=== PATIENT | male | born 1965 | race Caucasian/White ===

== ENCOUNTER 2024-04-12 17:53 | Inpatient (IN) | payer SELFPAY ==
[~2024-04-12] VITALS: Ht 162.6 cm; Wt 71.0 kg
[2024-04-12 17:59] VITALS: O2SAT 99
[2024-04-12] MEDS: SODIUM CHLORIDE 0.9% 1000ML BAG (SEPSIS BOLUS) IV ONE (18:21)
[2024-04-12] MEDS: ACETAMINOPHEN 325MG TABLET PO STA (18:25)
[2024-04-12 18:29] LABS: BASOPHILS % 0.5 % (0.0-2.0); HEMATOCRIT. 39.6 % (42.0-52.0); HEMOGLOBIN. 13.9 g/dL (14.0-18.0); LYMPHOCYTES % 18.8 % (20.0-50.0); MEAN CORPUSCULAR HEMOGLOBIN 30.1 pg (28.0-32.0); MEAN CORPUSCULAR HGB CONC 35.1 g/dL (31.0-37.0); MEAN CORPUSCULAR VOLUME 85.7 fL (80.0-94.0); MEAN PLATELET VOLUME 7.5 fl (7.4-10.4); MONOCYTES % 5.3 % (2.0-8.0); NEUTROPHILS % 75.4 % (40.0-76.0); PLATELET 291 x1000/uL (130-400); RED BLOOD CELL COUNT 4.62 mill/uL (4.7-6.1); RED CELL DISTRIBUTION WIDTH 13.7 % (11.6-14.6); WHITE BLOOD COUNT 10.3 x1000/uL (4.5-11.0)
[2024-04-12 18:31] LABS: CHLORIDE 102 mEq/L (98-107); SODIUM 139 mEq/L (136-145)
[2024-04-12 18:32] LABS: CARBON DIOXIDE 16 mEq/L (21-32)
[2024-04-12 18:33] LABS: CALCIUM 9.6 mg/dL (8.7-10.4)
[2024-04-12 18:37] LABS: CREATININE 0.8 mg/dL (0.6-1.3)
[2024-04-12 18:38] LABS: GLUCOSE 128 mg/dL (70-105); UREA NITROGEN BLOOD 9 mg/dL (9-23)
[2024-04-12] MEDS: ONDANSETRON HCL 4MG/2ML INJ IV ONE (19:09)
[2024-04-12 19:29] LABS: ALANINE AMINOTRANSFERASE 82 IU/L (10-49)
[2024-04-12 19:30] LABS: ALBUMIN 4.5 g/dL (3.2-4.8); ASPARTATE AMINOTRANSFERASE 184 IU/L (<34); BILIRUBIN DIRECT 0.2 mg/dL (<=3.0); BILIRUBIN TOTAL 1.1 mg/dL (0.1-1.0); PROTEIN TOTAL 7.6 g/dL (6.0-8.3)
[2024-04-12 19:31] LABS: TROPONIN I HIGH SENSITIVITY < 4 ng/L (3.0-53)
[2024-04-12 19:36] LABS: LACTIC ACID 5.8 mmol/L (0.4-2.0)
[2024-04-12] MEDS ORDERED: VANCOMYCIN 1G PREMIX 200 ML IV ONE (20:15)
[2024-04-12] MEDS: POTASSIUM CHLORIDE 20MEQ/PACKET PO ONE (21:08)
[2024-04-12] MEDS: PIPERACILLIN/TAZO 3.375G/50ML 50 ML IV ONE (21:08)
[2024-04-12] MEDS: VANCOMYCIN 1GM PMX (XELLIA) 200 ML IV NR (21:52)
[2024-04-13] VITALS: BP 148/87; PULSE 102; RESP 18; TEMP 37.11408; O2SAT 99
[2024-04-13] MEDS ORDERED: HYDROCODONE/ACETAMINOPHEN 5/325MG TABLET PO PRN (00:45)
[2024-04-13] MEDS ORDERED: ZOLPIDEM TARTRATE 5MG TABLET PO PRN (00:45)
[2024-04-13] MEDS ORDERED: ONDANSETRON HCL 4MG/2ML INJ IV PRN (00:45)
[2024-04-13] MEDS ORDERED: CLONIDINE 0.1MG TABLET PO PRN (00:45)
[2024-04-13] MEDS: SODIUM CHLORIDE 0.9% 1,000 ML IV SCH (01:35)
[2024-04-13] MEDS: VANCOMYCIN 500MG/100ML IV NR (02:39)
[2024-04-13 04:00] VITALS: BP 152/94; PULSE 81; RESP 18; TEMP 37.503; TEMP 37.50300; O2SAT 99
[2024-04-13] MEDS: PIPERACILLIN/TAZO 3.375G/50ML 50 ML IV SCH (06:53)
[2024-04-13] MEDS ORDERED: NALOXONE HCL 0.4MG/ML VIAL IV PRN (07:30)
[2024-04-13 08:06] LABS: CREATINE KINASE MB FRACTION 0.6 ng/mL (0.5-3.6); TROPONIN I HIGH SENSITIVITY 5 ng/L (3.0-53)
[2024-04-13 08:08] LABS: CREATINE KINASE 75 IU/L (46-171)
[2024-04-13] MEDS: PANTOPRAZOLE SODIUM 40 MG/VIAL IV SCH (08:54)
[2024-04-13] MEDS: ENOXAPARIN 40MG/0.4ML SYR SUBCUT SCH (08:55)
[2024-04-13] MEDS: VANCOMYCIN 1GM PMX (XELLIA) 200 ML IV SCH (08:55)
== END 2024-04-13 09:20 | disposition left against medical advice (07) | DRG 203 ==
LOC: ER 17:53 → 5WST 22:38 → EDBEDREQ 22:50 → EDBEDREQTM 22:50
PROVIDERS: ADMIT Internal Medicine; ATTEND Internal Medicine
DX: R07.89 Other chest pain (principal); Z20.822 Contact with and (suspected) exposure to COVID-19; Z53.29 Procedure and treatment not carried out because of patient's decision for other reasons
CPT/HCPCS: 36415; 71045; 80048; 80076; 82550; 82553; 83605; 84145; 84484; 85025; 87426; 87804; 93005; 93970; 99291; J3370; J7030